=== PATIENT | male | born 1990 | race African-American/Black ===

== ENCOUNTER 2023-06-10 07:03 | Emergency (ER) | payer SELFPAY ==
[~2023-06-10] VITALS: Ht 190.5 cm; Wt 122.5 kg
[2023-06-10 07:31] VITALS: O2SAT 100
[2023-06-10] MEDS ORDERED: BENZ1LOZ73 MT (10:43)
[2023-06-10 11:13] VITALS: BP 154/92; PULSE 64; RESP 18; TEMP 98.6
== END 2023-06-10 11:14 | disposition home or self-care (01) ==
LOC: ER 07:14
DX: T65.831A Toxic effect of fiberglass, accidental (unintentional), initial encounter (principal); X58.XXXA Exposure to other specified factors, initial encounter
CPT/HCPCS: 71045; 99283